=== PATIENT | female | born 1965 | race African-American/Black ===

== ENCOUNTER 2017-09-13 17:19 | Emergency (ER) | payer BC, MEDICAID ==
[~2017-09-13] VITALS: Ht 170.2 cm; Wt 68.0 kg
[2017-09-13 17:46] LABS: BASOPHILS % 0.7 % (0.0-2.0); EOSINOPHILS % 1.1 % (0.0-5.0); HEMATOCRIT. 38.7 % (36.0-48.0); HEMOGLOBIN. 13.1 g/dL (12.0-16.0); LYMPHOCYTES % 33.5 % (20.0-50.0); MEAN CORPUSCULAR HEMOGLOBIN 30.2 pg (28.0-32.0); MEAN CORPUSCULAR VOLUME 89.1 fL (81.0-99.0); MEAN PLATELET VOLUME 8.9 fl (7.4-10.4); MONOCYTES % 5.9 % (2.0-8.0); NEUTROPHILS % 58.8 % (40.0-76.0); PLATELET 290 x1000/uL (130-400); RED BLOOD CELL COUNT 4.34 mill/uL (4.2-5.4)
[2017-09-13 17:49] LABS: PROTHROMBIN TIME 10.5 sec (9.4-11.6)
[2017-09-13 17:52] LABS: CARBON DIOXIDE 28 mEq/L (21-32); CHLORIDE 107 mEq/L (98-107)
[2017-09-13 17:59] LABS: HDL CHOLESTEROL 55 mg/dL (40-59); LDL CHOLESTEROL 91 mg/dL (5-100); TROPONIN I < 0.02 ng/mL (0.00-0.04)
[2017-09-13 18:12] VITALS: BP 147/79
== END 2017-09-13 18:29 | disposition home or self-care (01) ==
LOC: ER 17:28
DX: R07.9 Chest pain, unspecified (principal)
CPT/HCPCS: 36415; 71045; 80053; 80061; 84484; 85025; 85610; 93005; 99285

== ENCOUNTER 2024-04-17 23:27 | Emergency (ER) | payer BC, OTHER ==
[~2024-04-17] VITALS: Ht 170.2 cm; Wt 67.0 kg
[2024-04-17 23:43] VITALS: O2SAT 98
[2024-04-18] MEDS ORDERED: ACET-2708 MT (00:21)
[2024-04-18] MEDS ORDERED: BACL-141 MT (00:21)
[2024-04-18] MEDS: LIDOCAINE 5% PATCH TOP SCH (01:25)
[2024-04-18] MEDS: IBUPROFEN 600MG TABLET PO ONE (01:25)
[2024-04-18] MEDS ORDERED: LIDOCAINE 5% PATCH TOP SCH (03:30)
[2024-04-18 04:13] VITALS: BP 131/73; PULSE 74; RESP 15; TEMP 36.55848; O2SAT 97
== END 2024-04-18 04:15 | disposition home or self-care (01) ==
LOC: ER 23:27
DX: M25.512 Pain in left shoulder (principal); I10 Essential (primary) hypertension; Z00.00 Encounter for general adult medical examination without abnormal findings; V49.9XXA Car occupant (driver) (passenger) injured in unspecified traffic accident, initial encounter; Y93.89 Activity, other specified; Y92.89 Other specified places as the place of occurrence of the external cause; Y99.8 Other external cause status
CPT/HCPCS: 73030; 99283

== ENCOUNTER 2024-07-22 07:44 | Emergency (ER) | payer OTHER ==
[~2024-07-22] VITALS: Ht 167.6 cm; Wt 64.0 kg
[~2024-07-22 07:44] MED LIST: ACET-2708 MT; BACL-141 MT
[2024-07-22 07:48] VITALS: O2SAT 98
[2024-07-22 08:30] LABS: CLARITY URINE CLEAR (CLEAR); COLOR URINE YELLOW (YELLOW); GLUCOSE URINE NEGATIVE (NEGATIVE); KETONES URINE NEGATIVE (NEGATIVE); LEUKOCYTE ESTERASE URINE 2+ (NEGATIVE); NITRITE URINE NEGATIVE (NEGATIVE); OCCULT BLOOD URINE TRACE (NEGATIVE); PH URINE 6.5 (4.5-8.0); PROTEIN URINE NEGATIVE (NEGATIVE); SPECIFIC GRAVITY URINE 1.021 (1.005-1.030)
[2024-07-22 08:40] LABS: CHLORIDE 110 mEq/L (98-107); POTASSIUM 3.8 mEq/L (3.5-5.1); SODIUM 140 mEq/L (136-145)
[2024-07-22 08:41] LABS: CARBON DIOXIDE 26 mEq/L (21-32)
[2024-07-22 08:42] LABS: CALCIUM 9.6 mg/dL (8.7-10.4)
[2024-07-22 08:46] LABS: CREATININE 0.5 mg/dL (0.6-1.0); GLUCOSE 97 mg/dL (70-105); UREA NITROGEN BLOOD 10 mg/dL (9-23)
[2024-07-22 08:48] VITALS: BP 137/85; PULSE 70; RESP 16; TEMP 36.83628; O2SAT 98
[2024-07-22 08:49] LABS: TROPONIN I HIGH SENSITIVITY < 4 ng/L (3.0-34)
[2024-07-22 08:54] LABS: BASOPHILS % 0.7 % (0.0-2.0); HEMATOCRIT. 37.8 % (36.0-48.0); HEMOGLOBIN. 12.6 g/dL (12.0-16.0); LYMPHOCYTES % 38.8 % (20.0-50.0); MEAN CORPUSCULAR HEMOGLOBIN 30.1 pg (28.0-32.0); MEAN CORPUSCULAR HGB CONC 33.3 g/dL (31.0-37.0); MEAN CORPUSCULAR VOLUME 90.4 fL (81.0-99.0); MEAN PLATELET VOLUME 9.4 fl (7.4-10.4); MONOCYTES % 5.9 % (2.0-8.0); NEUTROPHILS % 53.6 % (40.0-76.0); PLATELET 261 x1000/uL (130-400); RED BLOOD CELL COUNT 4.18 mill/uL (4.2-5.4); RED CELL DISTRIBUTION WIDTH 13.4 % (11.6-14.6); WHITE BLOOD COUNT 3.9 x1000/uL (4.5-11.0)
[2024-07-22 08:58] LABS: MUCUS URINE 3+ /lpf (< = 2+); SQUAMOUS EPITHELIAL CELL URINE 2+ /lpf (RARE/1+)
[2024-07-22 08:59] LABS: RBC URINE 0-2 /hpf (0-2); WBC URINE 50-100 /hpf (0-2)
[2024-07-22 09:03] LABS: BACTERIA URINE 2+
[2024-07-22] MEDS ORDERED: SULF1TAB48 MT (09:14)
[2024-07-22] MEDS ORDERED: PHEN-815 MT (09:14)
== END 2024-07-22 11:07 | disposition home or self-care (01) ==
LOC: ER 07:44
DX: R07.9 Chest pain, unspecified (principal); N39.0 Urinary tract infection, site not specified; I10 Essential (primary) hypertension; Z90.710 Acquired absence of both cervix and uterus; Z79.899 Other long term (current) drug therapy
CPT/HCPCS: 36415; 71045; 80048; 81003; 84484; 85025; 87077; 87186; 93005; 99285